=== PATIENT | male | born 1985 | race Caucasian/White ===

== ENCOUNTER 2023-09-02 14:02 | Outpatient (CLI) | payer OTHER, SELFPAY ==
--- NOTE | 2023-09-02 14:30 | CRLHL7_ITS ---
For Patients: As a result of the Century Cures Act, medical imaging exams and procedure reports are released immediately into your electronic medical record. You may view this report before your referring provider. If you have questions, please contact your health care provider. INDICATION: Headache. TECHNIQUE: Multiplanar multisequence noncontrast MR images acquired through the brain. COMPARISON: None. FINDINGS: The ventricles and sulci are within normal limits for patient age. No mass effect or midline shift. No parenchymal signal abnormalities. No intracranial hemorrhage or pathologic extra-axial fluid collection. No diffusion restriction to suggest acute infarction. The major arterial flow voids of the skullbase are preserved. The globes are symmetric. Minimal right maxillary sinus mucosal thickening. Trace right mastoid effusion. IMPRESSION: Unremarkable noncontrast MRI of the brain. Dictated by Severo Seymour MD @ 09/02/2023 3:34:28 PM (Electronically Signed)
== END 2023-09-02 14:03 | disposition home or self-care (01) ==
LOC: MRI 14:04
PROVIDERS: PCP Family Medicine; Visit Provider Family Medicine
DX: R51.9 Headache, unspecified (principal)
CPT/HCPCS: 70551

== ENCOUNTER 2024-12-07 14:32 | Outpatient (CLI) | payer BC, SELFPAY | END 2024-12-07 14:33 | disposition home or self-care (01) | PROVIDERS: PCP Family Medicine; Visit Provider Family Medicine | DX: N50.811 Right testicular pain (principal); L72.0 Epidermal cyst; N50.89 Other specified disorders of the male genital organs | CPT/HCPCS: 76870; 93976 ==

== ENCOUNTER 2025-04-16 01:18 | Emergency (ER) | payer BC, SELFPAY ==
[2025-04-16 01:23] VITALS: BP 159/92; PULSE 65; RESP 16; TEMP 36.7; O2SAT 99; BMI 27.4
[2025-04-16 01:29] LABS: Appearance Urine Clear (Clear); Bilirubin Urine Negative (Negative); Blood Urine Negative (Negative); Color Urine Yellow (Yellow); Glucose Urine Negative (Negative); Ketones Urine Negative (Negative); Leukocyte Esterase Urine Negative (Negative); Nitrite Urine Negative (Negative); Protein Urine Negative (Negative); Specific Gravity Urine 1.025 (1.000-1.030); Urobilinogen Urine 0.2 (0.2-1.0); pH Urine 5.5 (5.0-8.5)
[2025-04-16 01:38] LABS: RBC Urine 0-2 (0-2); Squamous Epithelial Cell Urine Few (None-Few); WBC Urine 0-2 (0-5)
--- NOTE | 2025-04-16 01:40 | CRLHL7_ITS ---
For Patients: As a result of the Century Cures Act, medical imaging exams and procedure reports are released immediately into your electronic medical record. You may view this report before your referring provider. If you have questions, please contact your health care provider. Indication: Left flank pain, history of kidney stones Technique: Noncontrast CT through the abdomen and pelvis with multiplanar reformats. Comparison: None Findings: Lower chest: No acute abnormality appreciated. Hepatobiliary: No significant parenchymal abnormality is appreciated. Cholecystectomy. Spleen: Rim calcified hypodensity in the anterior spleen, likely a benign and chronic process. Pancreas: No acute abnormality appreciated. Adrenal glands: No acute abnormality appreciated. Kidneys: Mild left hydronephrosis. Punctate nonobstructing bilateral renal stones. Bowel: No obstruction. No focal perienteric or pericolonic stranding is appreciated. The appendix is visualized and appears unremarkable. Vascular: Poorly evaluated on this noncontrast examination. Lymph nodes: No gross lymphadenopathy. Peritoneum: No free air. No free fluid. : There is a 2 millimeter obstructing left UVJ stone. Soft tissues: No acute abnormality appreciated. Bones: No acute fracture. No lytic or blastic lesion. Impression: 1. There is a 2 millimeter obstructing left UVJ stone with mild hydronephrosis. 2. Additional bilateral punctate nonobstructing stones noted. Please note that all CT scans at this facility use dose modulation, iterative reconstruction, and/or weight-based dosing when appropriate to reduce radiation dose to as low as reasonably achievable. Dictated by Ahsan Bhatti MD @ 04/16/2025 2:10:35 AM (Electronically Signed)
--- NOTE | 2025-04-16 01:45 | ED.GENADULT ---
HPI - General Adult General Chief complaint: Flank Pain Stated complaint: Left side pain Time Seen by Provider: 04/16/25 01:23 Source: patient Mode of arrival: ambulatory Limitations: no limitations History of Present Illness HPI narrative: 39-year-old male presents to the emergency department for evaluation of left flank pain radiating to left lower quadrant area for the past 7 hours. Pain constant and achy. Tried taking ibuprofen 7 hours ago with some mild temporary improvement. Tried Tylenol 4 hours ago. No fever. No trauma or injury. History of kidney stones 7 times in the past, reports that it feels similar. Also tried a heating pad with some temporary improvement, did discolor the skin slightly. No itch or specific burning sensation to the skin with a rash. No hematuria, no dysuria. Last bowel movement was yesterday, normal per his report. Does have some mild nausea but no vomiting. History of prior cholecystectomy 7 years ago, reports that this was uncomplicated. None of his kidney stones have other required lithotripsy or stent placement. Smoker, denies chronic lung disease. Allergy to hydromorphone, denies long-term medications. Prior abdominal surgery of cholecystectomy as stated above. Smoker. ROS is notable for the abdominal area symptoms, otherwise denies times 12 systems. Related Data Previous Rx's ?Medication ?Instructions ?Recorded ketorolac 10 mg tablet 10 mg PO Q6H PRN pain 5 days #20 04/16/25 tabs tamsulosin 0.4 mg capsule (Flomax) 0.4 mg PO DAILY PRN Kidney stone 04/16/25 #30 caps Allergies Allergy/AdvReac Type Severity Reaction Status Date / Time hydromorphone (From Dilaudid) Allergy Unknown Verified 04/16/25 01:26 [facility] Surgical History Status post cholecystectomy ?Z90.49 - Acquired absence of other specified parts of digestive tract (ICD-10) Social History Smoking Status: Never smoker How often do you have a drink containing alcohol: never AUDIT-C Alcohol total score: 0 Non-prescribed substance use: denies use Exam Const: Vital Signs, click to edit/add: Vital Signs - 24 hr 04/16/25 01:23 04/16/25 02:19 Temperature 98.1 F 98.1 F Pulse Rate [Pulse Oximeter] 65 Respiratory Rate 16 Blood Pressure [Ri ght Upper Arm] 159/92 H Pulse Oximetry 99 Oxygen Delivery Me thod Room Air Documenting provider has reviewed patient's vital signs: yes Common normals: no apparent distress General appearance: cooperative HENMT: Common normals: normocephalic, moist oral mucous membranes and oropharynx normal Head and scalp: normocephalic Eye: General eye: normal appearance of both eyes Neck & C-Spine: Common normals: full ROM and no lymphadenopathy General: normal visual inspection Resp: Common normals: normal respiratory effort, no use of accessory muscles and clear to auscultation bilaterally Effort & inspection: able to speak in complete sentences Auscultation: clear to auscultation bilaterally Cardio: Common normals: regular rate, regular rhythm, S1 normal heart sound, S2 normal heart sound and no murmurs Rate: regular rate Rhythm: regular rhythm Heart sounds: S1 normal and S2 normal GI: Common normals: Normal to inspection, nondistended, normoactive bowel sounds present, soft to palpation, non-tender, no hepatosplenomegaly and no masses Palpation: soft and no hepatosplenomegaly : Common normals: no CVA tenderness Bladder/kidney exam: no CVA tenderness Back & Pelvis: Common normals: no CVA tenderness and thoracic and lumbar spine normal to inspection Extremity: Common normals: normal to inspection and normal capillary refill Neuro: Motor exam: no movement abnormalities noted Psych: Appearance: grossly normal Attitude: calm Insight: insight good Judgement: judgment good Skin: Narrative: Slight red patchy discoloration to left lower quadrant/inguinal area, blanches. No blisters or vesicles. Does seem consistent with mild recent heat exposure as he described. Course Course ED Course: 39-year-old male with left lower quadrant pain and history of multiple prior kidney stones. Suspicious for ureterolithiasis. Cannot exclude diverticulitis, radicular pain, hernia, colitis, other intra-abdominal pathology. Will obtain urinalysis. CT abdomen and pelvis, place peripheral IV give Toradol and Zofran. Typical intra-abdominal labs. Await pending. Reevaluation(s) Time of Reevaluation #1: 02:23 Reevaluation #1: Patient feeling better after Toradol and Zofran. Counseled patient on findings, 2 mm left UVJ stone, does seem consistent with symptoms, likely etiology. Remainder of labs are all reassuring. Will give Flomax here in the ED, additional dose of Tylenol. Counseled on Tylenol and prescription Toradol that was provided. Will continue on daily Flomax. Discussed home management for future mild episodes with Flomax and Toradol and Tylenol. He verbalizes understanding and agreement. Re-evaluation if not improving in a few days or sooner if signs of complications like high fevers, persistent vomiting, etc.. Written instructions provided. All questions answered. Vital Signs Vital signs: Initial Vital Signs Temperature 98.1 F 04/16/25 01:23 Temperature Source Temporal Artery Scan 04/16/25 01:23 Pulse Rate 65 04/16/25 01:23 Respiratory Rate 16 04/16/25 01:23 Blood Pressure 159/92 H 04/16/25 01:23 Blood Pressure Mean 114 H 04/16/25 01:23 Blood Pressure Position Sitting 04/16/25 01:23 Pulse Oximetry 99 04/16/25 01:23 Oxygen Delivery Method Room Air 04/16/25 01:23 Vital Signs Temperature 98.1 F 04/16/25 01:23 Pulse Rate 65 04/16/25 01:23 Respiratory Rate 16 04/16/25 01:23 Blood Pressure 159/92 H 04/16/25 01:23 Pulse Oximetry 99 04/16/25 01:23 Oxygen Delivery Method Room Air 04/16/25 01:23 Temperature 98.1 F 04/16/25 02:19 Pulse Rate 65 04/16/25 01:23 Respiratory Rate 16 04/16/25 01:23 Blood Pressure 159/92 H 04/16/25 01:23 Pulse Oximetry 99 04/16/25 01:23 Oxygen Delivery Method Room Air 04/16/25 01:23 Medications Administered Medications: Generic Name Dose Route Start Last Admin Trade Name Freq PRN Reason Stop Dose Admin Acetaminophen 1,000 mg 04/16/25 02:15 04/16/25 02:19 Acetaminophen 500 Mg Tablet PO 04/16/25 02:16 1,000 mg ONCE ONE Administration Tamsulosin HCl 0.4 mg 04/16/25 02:15 04/16/25 02:19 Tamsulosin Hcl 0.4 Mg Capsule PO 04/16/25 02:16 0.4 mg ONCE ONE Administration Discontinued Medications Generic Name Dose Route Start Last Admin Trade Name Chevy PRN Reason Stop Dose Admin Ketorolac Tromethamine 15 mg 04/16/25 01:39 04/16/25 01:51 Ketorolac 15 Mg/Ml Inj IVP 04/16/25 01:40 15 mg ONCE ONE Administration Ondansetron HCl 4 mg 04/16/25 01:39 04/16/25 01:50 Ondansetron 2 Mg/Ml Inj IVP 04/16/25 01:40 4 mg ONCE ONE Administration Medical Decision Making Lab Data Lab results reviewed: Yes I reviewed the patient's lab results Lab results narrative: Mild leukocytosis but labs otherwise very reassuring. Labs: Lab Results 04/16/25 04/16/25 Range/Units 01:25 01:50 WBC 12.78 H (4.50-11.00) K/uL RBC 4.80 (4.30-5.90) m/uL Hgb 15.6 (13.5-17.5) gm/dL Hct 44.6 (37.0-53.0) % MCV 93 (80-100) fL MCH 33 (26-34) pg MCHC 35 (32-36) gm/dL RDW Coeff of [place] 12.2 (11.5-15.5) % Plt Count 218 (140-440) K/uL Neut % (Auto) 70.0 (42.0-72.0) % Lymph % (Auto) 22.5 (20-44) % [place] % (Auto) 5.6 (0.0-11.0) % Eos % (Auto) 1.1 (0.0-7.0) % Baso % (Auto) 0.6 (0.0-3.0) % Neut # (Auto) 8.90 H (1.7-7.0) K/uL Lymph # (Auto) 2.90 (0.90-2.90) K/uL [place] # (Auto) 0.70 (0.00-0.90) K/UL Eos # (Auto) 0.10 (0.00-0.50) K/uL Baso # (Auto) 0.10 (0.00-0.30) K/uL Abs Immat Gran (auto) 0.00 (0.00-0.30) K/uL Imm/Tot Granulo (auto) 0.2 % Sodium 138 (135-149) mmol/L Potassium 4.5 (3.6-5.1) mmol/L Chloride 105 (96-114) mmol/L Carbon Dioxide 25 (20-32) mmol/L Anion Gap 8 (7-15) mEq/L BUN 19 (5-24) mg/dL Creatinine 1.5 (0.5-1.5) mg/dL Estimated Creat Clear 60.85 Estimated GFR 61 ml/min Glucose 121 H (60-115) mg/dL Calcium 9.4 (8.4-10.6) mg/dL Total Bilirubin 0.8 (0.1-1.5) mg/dL AST 47 H (12-35) U/L ALT 58 H (4-50) U/L Alkaline Phosphatase 68 (40-150) U/L C-Reactive Protein < 0.5 L (0.5-1.0) mg/dL Total Protein 7.5 (6.0-8.3) g/dL Albumin 4.3 (3.3-5.0) g/dL Lipase 45 (23-300) U/L Urine Color Yellow (Yellow) Urine Appearance Clear (Clear) Urine pH 5.5 (5.0-8.5) Ur Specific [place] 1.025 (1.000-1.030) Urine Protein Negative (Negative) Urine Glucose (UA) Negative (Negative) Urine Ketones Negative (Negative) Urine Blood Negative (Negative) Urine Nitrite Negative (Negative) Urine Bilirubin Negative (Negative) Urine Urobilinogen 0.2 (0.2-1.0) Ur Leukocyte Esterase Negative (Negative) Urine RBC 0-2 (0-2) Urine WBC 0-2 (0-5) Ur Squamous Epith Cells Few (None-Few) Urine Bacteria None (None) Imaging Data CT scan - abdomen: Attestation: I have reviewed the pertinent imaging results. My impression: Tiny UVJ stone with mild hydronephrosis left side Radiologist's impression: Impression: 1. There is a 2 millimeter obstructing left UVJ stone with mild hydronephrosis. 2. Additional bilateral punctate nonobstructing stones noted. Please note that all CT scans at this facility use dose modulation, iterative reconstruction, and/or weight-based dosing when appropriate to reduce radiation dose to as low as reasonably achievable. Dictated by Ahsan Bhatti MD @ 04/16/2025 2:10:35 AM Discharge Plan Discharge Clinical Impression: Ureterolithiasis Patient Disposition: Home, Self-Care Additional Instructions: As we discussed, you have a tiny stone in the left distal ureter, right before it enters the bladder. This is the spot that they most commonly gets stuck for a while. Your job is to drink lots of fluids, move frequently. I have given you a dose of Flomax which is an anti spasmodic ureter dilating medication that should help the stone pass more easily. I have given you a supply to use once daily until the stone passes the also enough that you can have some on hand for future episodes if they are similar. Have also given her prescription for Toradol which is an anti-inflammatory pain medicine. Use 1 pill up to every 6 hours as needed for pain. Do not use for more than 5 days in a row. Drink lots of fluid while using the medication. You will likely have some left over for future episodes as well. With future episodes, you should always come in if he have a high fever or the pain medicine is absolutely not working or takes more than a few days for the stone to pass. If this stone does not pass within a week or you have signs of complication such as fever, persistent vomiting, bloody stools or other similar surprises, you should be re-evaluated. Activity Level: No Restrictions Discharge Diet: Regular Prescriptions: New tamsulosin [Flomax] 0.4 mg capsule 0.4 mg PO DAILY PRN (Reason: Kidney stone) Qty: 30 1RF Rx Instructions: Take 1 pill by mouth daily when symptomatic with kidney stone, does not prevent kidney stones ketorolac 10 mg tablet 10 mg PO Q6H PRN (Reason: pain) 5 Days Qty: 20 0RF Rx Instructions: As needed for kidney stones Follow Up/Referrals: Thomas Cortez MD [Primary Care Provider, Family Practice] Stand Alone Forms: [employer] Info Instructions
[2025-04-16] MEDS: ONDANSETRON 2 MG/ML inj 4 MG IVP (01:50)
[2025-04-16] MEDS: KETOROLAC 15 MG/ML inj IVP (01:51)
[2025-04-16 01:58] LABS: Basophils Percent Auto 0.6 % (0.0-3.0); Eosinophils Percent Auto 1.1 % (0.0-7.0); Hematocrit 44.6 % (37.0-53.0); Hemoglobin* 15.6 gm/dL (13.5-17.5); Immature Granulocytes Pct Auto 0.2 %; Lymphocytes Percent Auto 22.5 % (20-44); Mean Corpuscular HGB Conc 35 gm/dL (32-36); Mean Corpuscular Hemoglobin 33 pg (26-34); Mean Corpuscular Volume 93 fL (80-100); Monocytes Percent Auto 5.6 % (0.0-11.0); Platelet Count* 218 K/uL (140-440); RDW Coefficient of Variation % 12.2 % (11.5-15.5); White Blood Count* 12.78 K/uL (4.50-11.00)
[2025-04-16 02:00] LABS: Slide Review Reflex No
[2025-04-16 02:13] LABS: Albumin* 4.3 g/dL (3.3-5.0); Chloride* 105 mmol/L (96-114)
[2025-04-16 02:14] LABS: Potassium* 4.5 mmol/L (3.6-5.1); Sodium* 138 mmol/L (135-149)
[2025-04-16 02:16] LABS: Alanine Aminotransferase* 58 U/L (4-50); Aspartate Amino Transferase* 47 U/L (12-35); Blood Urea Nitrogen* 19 mg/dL (5-24); Creatinine* 1.5 mg/dL (0.5-1.5); Est. Creatinine Clearance* 60.85; Estimated Glomerular Filt Rate 61 ml/min
[2025-04-16 02:17] LABS: Alkaline Phosphatase* 68 U/L (40-150); Anion Gap 8 mEq/L (7-15); Bilirubin Total* 0.8 mg/dL (0.1-1.5); Calcium* 9.4 mg/dL (8.4-10.6); Carbon Dioxide* 25 mmol/L (20-32); Glucose* 121 mg/dL (60-115); Lipase* 45 U/L (23-300); Total Protein* 7.5 g/dL (6.0-8.3)
[2025-04-16 02:19] VITALS: TEMP 36.7
[2025-04-16] MEDS: ACETAMINOPHEN 500 MG TABLET 1000 MG PO (02:19)
[2025-04-16] MEDS: TAMSULOSIN HCL 0.4 MG CAPSULE PO (02:19)
[2025-04-16 02:20] LABS: C Reactive Protein* < 0.5 mg/dL (0.5-1.0)
== END 2025-04-16 02:34 | disposition home or self-care (01) ==
PROVIDERS: Emergency Provider Family Medicine; PCP Family Medicine
DX: N20.1 Calculus of ureter (principal)
CPT/HCPCS: 36415; 74176; 80053; 81001; 83690; 85025; 86140; 96374; 96375; 99284; A9270; J1885; J2405